=== PATIENT | female | born 1940 | race Asian ===

== ENCOUNTER 2016-05-06 15:57 | Emergency (ER) | payer OTHER ==
[~2016-05-06] VITALS: Ht 167.6 cm; Wt 73.9 kg
[2016-05-06 17:45] LABS: PLATELET COUNT 205 K/uL (152-353)
[2016-05-06 17:55] LABS: POTASSIUM 4.2 mmol/L (3.6-5.2)
[2016-05-06 18:40] VITALS: BP 126/90; TEMP 98.5
== END 2016-05-06 18:43 | disposition home or self-care (01) ==
LOC: ED 15:57
DX: I10 Essential (primary) hypertension (principal); E11.9 Type 2 diabetes mellitus without complications; F41.8 Other specified anxiety disorders
CPT/HCPCS: 80053; 85027; 93005; 99283

== ENCOUNTER 2016-07-11 14:47 | Outpatient (CLI) | payer OTHER ==
[2016-07-11 15:41] LABS: PLATELET COUNT 293 K/uL (152-353)
== END 2016-07-11 16:00 | disposition home or self-care (01) ==
LOC: LAB 14:47
PROVIDERS: Internal Medicine
DX: I63.8 Other cerebral infarction (principal); I63.512 Cerebral infarction due to unspecified occlusion or stenosis of left middle cerebral artery; I69.959 Hemiplegia and hemiparesis following unspecified cerebrovascular disease affecting unspecified side; D50.8 Other iron deficiency anemias
CPT/HCPCS: 82607; 82728; 82746; 83540; 85027

== ENCOUNTER 2016-07-20 11:10 | Outpatient (CLI) | payer OTHER ==
[~2016-07-20] VITALS: Ht 160 cm; Wt 67.1 kg
[2016-07-20 11:48] VITALS: BP 143/62; TEMP 98.6
== END 2016-07-20 13:02 | disposition home or self-care (01) ==
LOC: INF 11:10
DX: D50.8 Other iron deficiency anemias (principal)
CPT/HCPCS: 96365; J1756

== ENCOUNTER 2016-08-10 13:58 | Inpatient (IN) | payer OTHER | END 2016-09-02 15:26 | disposition still patient (30) | LOC: PAVB 13:58 | PROVIDERS: ADMIT Internal Medicine | DX: Z51.89 Encounter for other specified aftercare (principal) ==

== ENCOUNTER 2016-08-10 18:42 | Outpatient (CLI) | payer OTHER | END 2016-08-10 19:45 | disposition home or self-care (01) | LOC: LAB 18:42 | DX: Z13.89 Encounter for screening for other disorder (principal) | CPT/HCPCS: 87081 ==

== ENCOUNTER 2016-08-11 09:21 | Outpatient (CLI) | payer OTHER ==
[2016-08-11 09:34] LABS: PLATELET COUNT 283 K/uL (152-353)
[2016-08-11 10:24] LABS: SODIUM 142 mmol/L (136-145)
== END 2016-08-11 19:27 | disposition home or self-care (01) ==
LOC: LAB 09:21
PROVIDERS: Internal Medicine
DX: E11.9 Type 2 diabetes mellitus without complications (principal); E55.9 Vitamin D deficiency, unspecified; I10 Essential (primary) hypertension; E78.4 Other hyperlipidemia; D64.89 Other specified anemias
CPT/HCPCS: 80053; 80061; 82248; 82306; 82728; 83036; 83540; 85027

== ENCOUNTER 2016-09-02 16:02 | Inpatient (IN) | payer OTHER | END 2016-10-03 09:48 | disposition still patient (30) | LOC: PAVB 16:02 | PROVIDERS: ADMIT Internal Medicine | DX: Z51.89 Encounter for other specified aftercare (principal) ==

== ENCOUNTER 2016-10-03 11:26 | Inpatient (IN) | payer OTHER | END 2016-11-03 08:46 | disposition still patient (30) | LOC: PAVB 11:26 | PROVIDERS: ADMIT Internal Medicine | DX: Z51.89 Encounter for other specified aftercare (principal) ==

== ENCOUNTER 2016-11-03 09:36 | Inpatient (IN) | payer OTHER | END 2016-12-03 10:10 | disposition still patient (30) | LOC: PAVB 09:36 | PROVIDERS: ADMIT Internal Medicine | DX: Z51.89 Encounter for other specified aftercare (principal) ==

== ENCOUNTER 2016-11-08 08:07 | Outpatient (CLI) | payer OTHER | END 2016-11-08 09:10 | disposition home or self-care (01) | LOC: LAB 08:07 | DX: E11.9 Type 2 diabetes mellitus without complications (principal) | CPT/HCPCS: 83036 ==

== ENCOUNTER 2016-12-03 10:23 | Inpatient (IN) | payer OTHER | END 2017-01-03 13:04 | disposition still patient (30) | LOC: PAVB 10:23 | PROVIDERS: ADMIT Internal Medicine ==

== ENCOUNTER 2017-01-03 14:13 | Inpatient (IN) | payer OTHER | END 2017-02-02 09:25 | disposition still patient (30) | LOC: PAVB 14:13 | PROVIDERS: ADMIT Internal Medicine ==

== ENCOUNTER 2017-02-02 10:04 | Inpatient (IN) | payer OTHER | END 2017-03-05 09:44 | disposition still patient (30) | LOC: PAVB 10:04 | PROVIDERS: ADMIT Internal Medicine ==

== ENCOUNTER 2017-02-05 06:05 | Outpatient (CLI) | payer OTHER ==
[2017-02-05 06:43] LABS: PLATELET COUNT 177 K/uL (152-353)
[2017-02-05 06:58] LABS: POTASSIUM 3.8 mmol/L (3.6-5.2); SODIUM 138 mmol/L (136-145)
== END 2017-02-05 07:05 | disposition home or self-care (01) ==
LOC: LAB 06:05
PROVIDERS: Internal Medicine
DX: D50.8 Other iron deficiency anemias (principal); I10 Essential (primary) hypertension; E78.4 Other hyperlipidemia
CPT/HCPCS: 36415; 80053; 80061; 82248; 82306; 82728; 83540; 85027

== ENCOUNTER 2017-02-12 06:32 | Day surgery (SDC) | payer OTHER | END 2017-02-12 09:17 | LOC: OR 06:32 | PROC: 08RJ3JZ Replacement of Right Lens with Synthetic Substitute, Percutaneous Approach (ICD-10-PCS; principal; 2017-02-12) | DX: H25.811 Combined forms of age-related cataract, right eye (principal) | CPT/HCPCS: 66984; J0171; V2632 ==

== ENCOUNTER 2017-02-14 05:01 | Outpatient (CLI) | payer OTHER | END 2017-02-14 06:05 | disposition home or self-care (01) | LOC: LAB 05:01 | DX: E11.9 Type 2 diabetes mellitus without complications (principal); D64.89 Other specified anemias | CPT/HCPCS: 83036 ==

== ENCOUNTER 2017-03-05 10:51 | Inpatient (IN) | payer OTHER | END 2017-04-05 09:59 | disposition still patient (30) | LOC: PAVB 10:51 | PROVIDERS: ADMIT Internal Medicine ==

== ENCOUNTER 2017-03-18 14:03 | Outpatient (CLI) | payer OTHER | END 2017-03-18 23:03 | disposition home or self-care (01) | LOC: LAB 14:03 | DX: R50.9 Fever, unspecified (principal) | CPT/HCPCS: 87804 ==

== ENCOUNTER 2017-03-19 01:32 | Outpatient (CLI) | payer OTHER ==
[2017-03-19 02:27] LABS: PLATELET COUNT 191 K/uL (152-353)
== END 2017-03-19 21:43 | disposition home or self-care (01) ==
LOC: RAD 01:32 → LAB 01:32
PROVIDERS: Internal Medicine
DX: R09.3 Abnormal sputum (principal); R50.9 Fever, unspecified; I51.7 Cardiomegaly
CPT/HCPCS: 36415; 85027; 87040; 87077; 87186; 87205

== ENCOUNTER 2017-04-05 11:06 | Inpatient (IN) | payer OTHER | END 2017-05-03 09:23 | disposition still patient (30) | LOC: PAVB 11:06 | PROVIDERS: ADMIT Internal Medicine ==

== ENCOUNTER 2017-05-03 10:29 | Inpatient (IN) | payer OTHER | END 2017-06-03 08:00 | disposition still patient (30) | LOC: PAVB 10:29 | PROVIDERS: ADMIT Internal Medicine ==

== ENCOUNTER 2017-05-07 04:42 | Outpatient (CLI) | payer OTHER | END 2017-05-07 19:16 | disposition home or self-care (01) | LOC: LABW 04:42 | DX: E11.9 Type 2 diabetes mellitus without complications (principal) | CPT/HCPCS: 36415; 83036 ==

== ENCOUNTER 2017-06-03 09:00 | Inpatient (IN) | payer OTHER | END 2017-07-03 09:09 | disposition still patient (30) | LOC: PAVB 09:00 | PROVIDERS: ADMIT Internal Medicine ==

== ENCOUNTER 2017-07-03 10:12 | Inpatient (IN) | payer OTHER | END 2017-08-03 08:57 | disposition still patient (30) | LOC: PAVB 10:12 | PROVIDERS: ADMIT Internal Medicine ==

== ENCOUNTER 2017-07-14 23:14 | Outpatient (CLI) | payer OTHER | END 2017-07-14 23:55 | LOC: LAB 23:14 | DX: R73.9 Hyperglycemia, unspecified (principal) | CPT/HCPCS: 82947 ==

== ENCOUNTER 2017-08-03 10:10 | Inpatient (IN) | payer OTHER | END 2017-09-02 15:02 | disposition still patient (30) | LOC: PAVB 10:10 | PROVIDERS: ADMIT Internal Medicine ==

== ENCOUNTER 2017-08-07 08:13 | Outpatient (CLI) | payer OTHER ==
[2017-08-07 08:35] LABS: PLATELET COUNT 203 K/uL (152-353)
[2017-08-07 09:06] LABS: POTASSIUM 3.7 mmol/L (3.6-5.2)
== END 2017-08-07 22:18 | disposition home or self-care (01) ==
LOC: LAB 08:13
PROVIDERS: Internal Medicine
DX: I10 Essential (primary) hypertension (principal); D50.8 Other iron deficiency anemias; E78.4 Other hyperlipidemia; E11.9 Type 2 diabetes mellitus without complications; E55.9 Vitamin D deficiency, unspecified; Z79.899 Other long term (current) drug therapy; Z51.81 Encounter for therapeutic drug level monitoring
CPT/HCPCS: 80053; 80061; 82248; 82306; 82728; 83036; 83540; 85027

== ENCOUNTER 2017-09-02 15:55 | Inpatient (IN) | payer OTHER | END 2017-10-03 08:00 | disposition still patient (30) | LOC: PAVB 15:55 | PROVIDERS: ADMIT Internal Medicine ==

== ENCOUNTER 2017-10-03 09:00 | Inpatient (IN) | payer OTHER | END 2017-11-03 10:19 | disposition still patient (30) | LOC: PAVB 09:00 | PROVIDERS: ADMIT Internal Medicine ==

== ENCOUNTER 2017-11-03 11:02 | Inpatient (IN) | payer OTHER | END 2017-12-03 09:34 | disposition still patient (30) | LOC: PAVB 11:02 | PROVIDERS: ADMIT Internal Medicine ==

== ENCOUNTER 2017-11-08 04:29 | Outpatient (CLI) | payer OTHER | END 2017-11-08 23:15 | disposition home or self-care (01) | LOC: LAB 04:29 | DX: E11.9 Type 2 diabetes mellitus without complications (principal) | CPT/HCPCS: 36415; 83036 ==

== ENCOUNTER 2017-12-03 10:17 | Inpatient (IN) | payer OTHER | END 2018-01-03 08:48 | disposition still patient (30) | LOC: PAVB 10:17 | PROVIDERS: ADMIT Internal Medicine ==

== ENCOUNTER 2017-12-25 16:31 | Outpatient (CLI) | payer OTHER | END 2017-12-25 21:28 | disposition home or self-care (01) | LOC: CT 16:31 | DX: S00.83XA Contusion of other part of head, initial encounter (principal); W19.XXXA Unspecified fall, initial encounter; Y93.89 Activity, other specified; Y92.128 Other place in nursing home as the place of occurrence of the external cause; Z79.01 Long term (current) use of anticoagulants; R51 Headache ==

== ENCOUNTER 2018-01-03 09:55 | Inpatient (IN) | payer OTHER | END 2018-02-02 08:33 | disposition still patient (30) | LOC: PAVB 09:55 | PROVIDERS: ADMIT Internal Medicine ==

== ENCOUNTER 2018-02-02 09:17 | Inpatient (IN) | payer OTHER | END 2018-03-05 11:06 | disposition still patient (30) | LOC: PAVB 09:17 | PROVIDERS: ADMIT Internal Medicine ==

== ENCOUNTER 2018-02-04 06:06 | Outpatient (CLI) | payer OTHER ==
[2018-02-04 06:24] LABS: PLATELET COUNT 206 K/uL (152-353)
[2018-02-04 06:56] LABS: POTASSIUM 4.2 mmol/L (3.6-5.2)
== END 2018-02-04 20:25 | disposition home or self-care (01) ==
LOC: LAB 06:06
PROVIDERS: Internal Medicine
DX: I10 Essential (primary) hypertension (principal); E11.9 Type 2 diabetes mellitus without complications
CPT/HCPCS: 80053; 82248; 82306; 82728; 83036; 83540; 85027

== ENCOUNTER 2018-03-05 11:26 | Inpatient (IN) | payer OTHER | END 2018-04-05 10:55 | disposition still patient (30) | LOC: PAVB 11:26 | PROVIDERS: ADMIT Internal Medicine ==

== ENCOUNTER 2018-03-06 05:12 | Outpatient (CLI) | payer OTHER | END 2018-03-06 21:28 | disposition home or self-care (01) | LOC: LAB 05:12 | PROVIDERS: Internal Medicine | DX: E78.5 Hyperlipidemia, unspecified (principal) | CPT/HCPCS: 80061 ==

== ENCOUNTER 2018-04-05 11:16 | Inpatient (IN) | payer OTHER | END 2018-05-03 10:19 | disposition still patient (30) | LOC: PAVB 11:16 | PROVIDERS: ADMIT Internal Medicine ==

== ENCOUNTER 2018-04-30 04:17 | Outpatient (CLI) | payer OTHER ==
[2018-04-30 05:04] LABS: PLATELET COUNT 192 K/uL (152-353)
[2018-04-30 05:15] LABS: POTASSIUM 3.7 mmol/L (3.6-5.2)
== END 2018-04-30 19:18 | disposition home or self-care (01) ==
LOC: LAB 04:17
PROVIDERS: Internal Medicine
DX: N39.0 Urinary tract infection, site not specified (principal); R53.83 Other fatigue
CPT/HCPCS: 80048; 81000; 85027

== ENCOUNTER 2018-05-03 11:13 | Inpatient (IN) | payer OTHER | END 2018-06-03 10:40 | disposition still patient (30) | LOC: PAVB 11:13 | PROVIDERS: ADMIT Internal Medicine ==

== ENCOUNTER 2018-05-07 07:44 | Outpatient (CLI) | payer OTHER | END 2018-05-07 23:47 | disposition home or self-care (01) | LOC: LAB 07:44 | DX: E11.9 Type 2 diabetes mellitus without complications (principal) | CPT/HCPCS: 83036 ==

== ENCOUNTER 2018-06-03 11:21 | Inpatient (IN) | payer OTHER | END 2018-07-03 11:17 | disposition still patient (30) | LOC: PAVB 11:21 | PROVIDERS: ADMIT Internal Medicine ==

== ENCOUNTER 2018-07-03 12:25 | Inpatient (IN) | payer OTHER | END 2018-08-03 08:38 | disposition still patient (30) | LOC: PAVB 12:25 | PROVIDERS: ADMIT Internal Medicine | DX: Z51.89 Encounter for other specified aftercare (principal) ==

== ENCOUNTER 2018-08-03 09:30 | Inpatient (IN) | payer OTHER | END 2018-09-02 09:37 | disposition still patient (30) | LOC: PAVB 09:30 | PROVIDERS: ADMIT Internal Medicine ==

== ENCOUNTER 2018-08-07 05:00 | Outpatient (CLI) | payer OTHER ==
[2018-08-07 06:24] LABS: PLATELET COUNT 230 K/uL (152-353)
[2018-08-07 06:30] LABS: POTASSIUM 3.5 mmol/L (3.6-5.2)
== END 2018-08-07 23:22 | disposition home or self-care (01) ==
LOC: LAB 05:00
PROVIDERS: Internal Medicine
DX: E55.9 Vitamin D deficiency, unspecified (principal); E78.49 Other hyperlipidemia; I10 Essential (primary) hypertension; E11.21 Type 2 diabetes mellitus with diabetic nephropathy
CPT/HCPCS: 80053; 82248; 82306; 82728; 83036; 83540; 85027

== ENCOUNTER 2018-09-02 11:27 | Inpatient (IN) | payer OTHER | END 2018-10-03 10:35 | disposition still patient (30) | LOC: PAVB 11:27 | PROVIDERS: ADMIT Internal Medicine ==

== ENCOUNTER 2018-10-03 11:18 | Inpatient (IN) | payer OTHER | END 2018-11-03 16:26 | disposition still patient (30) | LOC: PAVB 11:18 | PROVIDERS: ADMIT Internal Medicine ==

== ENCOUNTER 2018-10-26 16:12 | Outpatient (CLI) | payer OTHER | END 2018-10-26 23:59 | disposition home or self-care (01) | LOC: LAB 16:12 | DX: R30.0 Dysuria (principal); R82.998 Other abnormal findings in urine | CPT/HCPCS: 81000 ==

== ENCOUNTER 2018-11-03 17:08 | Inpatient (IN) | payer OTHER | END 2018-12-03 09:21 | disposition still patient (30) | LOC: PAVB 17:08 | PROVIDERS: ADMIT Internal Medicine ==

== ENCOUNTER 2018-11-05 07:22 | Outpatient (CLI) | payer OTHER | END 2018-11-05 22:48 | disposition home or self-care (01) | LOC: LAB 07:22 | DX: E11.9 Type 2 diabetes mellitus without complications (principal) | CPT/HCPCS: 36415; 83036 ==

== ENCOUNTER 2018-12-03 10:32 | Inpatient (IN) | payer OTHER | END 2019-01-03 11:10 | disposition still patient (30) | LOC: PAVB 10:32 | PROVIDERS: ADMIT Internal Medicine ==

== ENCOUNTER 2019-01-03 11:37 | Inpatient (IN) | payer OTHER | END 2019-02-02 08:00 | disposition still patient (30) | LOC: PAVB 11:37 | PROVIDERS: ADMIT Internal Medicine ==

== ENCOUNTER 2019-02-02 10:10 | Inpatient (IN) | payer OTHER | END 2019-03-05 08:34 | disposition still patient (30) | LOC: PAVB 10:10 | PROVIDERS: ADMIT Internal Medicine ==

== ENCOUNTER 2019-02-05 06:43 | Outpatient (CLI) | payer OTHER ==
[2019-02-05 07:53] LABS: PLATELET COUNT 213 K/uL (152-353)
[2019-02-05 08:17] LABS: POTASSIUM 3.9 mmol/L (3.6-5.2)
== END 2019-02-05 20:40 | disposition home or self-care (01) ==
LOC: LAB 06:43
PROVIDERS: Internal Medicine
DX: E11.40 Type 2 diabetes mellitus with diabetic neuropathy, unspecified (principal); I10 Essential (primary) hypertension; E55.9 Vitamin D deficiency, unspecified; D50.8 Other iron deficiency anemias; E78.49 Other hyperlipidemia
CPT/HCPCS: 36415; 80053; 82248; 82306; 82728; 83036; 83540; 85027

== ENCOUNTER → 2019-02-26 | Outpatient (CLI) | payer OTHER | LOC: LAB 06:11 | DX: E11.9 Type 2 diabetes mellitus without complications (principal) | CPT/HCPCS: 82947 ==

== ENCOUNTER 2019-03-05 08:53 | Inpatient (IN) | payer OTHER | END 2019-04-05 09:56 | disposition still patient (30) | LOC: PAVB 08:53 | PROVIDERS: ADMIT Internal Medicine ==

== ENCOUNTER 2019-03-07 06:01 | Outpatient (CLI) | payer OTHER | END 2019-03-07 19:24 | disposition home or self-care (01) | LOC: LAB 06:01 | PROVIDERS: Internal Medicine | DX: E78.49 Other hyperlipidemia (principal) | CPT/HCPCS: 80061 ==

== ENCOUNTER 2019-03-20 10:11 | Day surgery (SDC) | payer OTHER | END 2019-03-20 11:32 | LOC: OR 10:11 | PROC: 0HQ3XZZ Repair Left Ear Skin, External Approach (ICD-10-PCS; principal; 2019-03-20) | DX: S01.312A Laceration without foreign body of left ear, initial encounter (principal); X58.XXXA Exposure to other specified factors, initial encounter; Y92.128 Other place in nursing home as the place of occurrence of the external cause ==

== ENCOUNTER 2019-04-05 10:36 | Inpatient (IN) | payer OTHER | END 2019-05-04 13:15 | disposition still patient (30) | LOC: PAVB 10:36 | PROVIDERS: ADMIT Internal Medicine ==

== ENCOUNTER 2019-05-03 05:50 | Outpatient (CLI) | payer OTHER | END 2019-05-03 19:20 | disposition home or self-care (01) | LOC: LAB 05:50 | DX: E10.9 Type 1 diabetes mellitus without complications (principal) | CPT/HCPCS: 82947 ==

== ENCOUNTER 2019-05-04 14:01 | Inpatient (IN) | payer OTHER | END 2019-06-04 09:41 | disposition still patient (30) | LOC: PAVB 14:01 | PROVIDERS: ADMIT Internal Medicine ==

== ENCOUNTER 2019-05-07 06:48 | Outpatient (CLI) | payer OTHER | END 2019-05-07 19:27 | disposition home or self-care (01) | LOC: LAB 06:48 | DX: E55.9 Vitamin D deficiency, unspecified (principal) | CPT/HCPCS: 82306 ==

== ENCOUNTER 2019-05-08 04:33 | Outpatient (CLI) | payer OTHER | END 2019-05-08 21:28 | disposition home or self-care (01) | LOC: LAB 04:33 | DX: E11.9 Type 2 diabetes mellitus without complications (principal) | CPT/HCPCS: 83036 ==

== ENCOUNTER 2019-06-04 10:28 | Inpatient (IN) | payer OTHER | END 2019-06-28 19:00 | disposition home or self-care (01) | LOC: PAVB 10:28 | PROVIDERS: ADMIT Internal Medicine ==

== ENCOUNTER 2019-07-17 09:58 | Outpatient (CLI) | payer OTHER ==
[2019-07-17 10:25] LABS: PLATELET COUNT 306 K/uL (152-353)
[2019-07-17 10:34] LABS: POTASSIUM 3.5 mmol/L (3.6-5.2)
== END 2019-07-17 19:01 | disposition home or self-care (01) ==
LOC: LAB 09:58
PROVIDERS: Nurse Practitioner Family
DX: E11.9 Type 2 diabetes mellitus without complications (principal); E55.9 Vitamin D deficiency, unspecified; E78.2 Mixed hyperlipidemia; I10 Essential (primary) hypertension; I25.10 Atherosclerotic heart disease of native coronary artery without angina pectoris; Z79.899 Other long term (current) drug therapy; R53.81 Other malaise; E53.8 Deficiency of other specified B group vitamins; F03.90 Unspecified dementia, unspecified severity, without behavioral disturbance, psychotic disturbance, mood disturbance, and anxiety
CPT/HCPCS: 80053; 80061; 81000; 82043; 82306; 82570; 82607; 83036; 83735; 85027

== ENCOUNTER 2020-06-02 15:02 | Inpatient (IN) | payer OTHER | END 2020-06-03 13:58 | disposition still patient (30) | LOC: PAVC 15:02 | PROVIDERS: ADMIT Internal Medicine; ATTEND Internal Medicine ==

== ENCOUNTER 2020-06-03 11:51 | Outpatient (CLI) | payer OTHER ==
[2020-06-03 12:40] LABS: PLATELET COUNT 238 K/uL (152-353)
[2020-06-03 12:46] LABS: POTASSIUM 3.5 mmol/L (3.6-5.2)
== END 2020-06-03 21:33 | disposition home or self-care (01) ==
LOC: LAB 11:51
PROVIDERS: ATTEND Internal Medicine
DX: I69.353 Hemiplegia and hemiparesis following cerebral infarction affecting right non-dominant side (principal); E11.9 Type 2 diabetes mellitus without complications; E55.9 Vitamin D deficiency, unspecified; I10 Essential (primary) hypertension; D50.8 Other iron deficiency anemias; E53.8 Deficiency of other specified B group vitamins
CPT/HCPCS: 80053; 80061; 82306; 82607; 82728; 83036; 83540; 84443; 85027; 87081

== ENCOUNTER 2020-06-03 14:00 | Inpatient (IN) | payer OTHER | END 2020-07-03 10:53 | disposition still patient (30) | LOC: PAVC 14:00 → PAVB 06-22 14:43 | PROVIDERS: ADMIT Internal Medicine; ATTEND Internal Medicine ==

== ENCOUNTER 2020-07-03 10:55 | Inpatient (IN) | payer OTHER | END 2020-08-03 15:28 | disposition still patient (30) | LOC: PAVB 10:55 | PROVIDERS: ADMIT Internal Medicine; ATTEND Internal Medicine ==

== ENCOUNTER 2020-08-03 15:37 | Inpatient (IN) | payer OTHER | END 2020-09-02 08:00 | disposition still patient (30) | LOC: PAVB 15:37 | PROVIDERS: ADMIT Internal Medicine; ATTEND Internal Medicine ==

== ENCOUNTER 2020-09-02 09:00 | Inpatient (IN) | payer OTHER | END 2020-10-03 08:00 | disposition still patient (30) | LOC: PAVB 09:00 → PAVA 09-08 11:16 | PROVIDERS: ADMIT Internal Medicine; ATTEND Internal Medicine ==

== ENCOUNTER 2020-09-07 10:31 | Outpatient (CLI) | payer OTHER | END 2020-09-07 19:15 | disposition home or self-care (01) | LOC: LAB 10:31 | PROVIDERS: ATTEND Internal Medicine | DX: E11.9 Type 2 diabetes mellitus without complications (principal) | CPT/HCPCS: 83036 ==

== ENCOUNTER 2020-10-03 09:00 | Inpatient (IN) | payer OTHER | END 2020-11-03 09:07 | disposition still patient (30) | LOC: PAVA 09:00 | PROVIDERS: ADMIT Internal Medicine; ATTEND Internal Medicine ==

== ENCOUNTER 2020-11-03 09:16 | Inpatient (IN) | payer OTHER | END 2020-12-03 08:09 | disposition still patient (30) | LOC: PAVA 09:16 | PROVIDERS: ADMIT Internal Medicine; ATTEND Internal Medicine ==

== ENCOUNTER 2020-11-30 09:22 | Outpatient (CLI) | payer OTHER | END 2020-11-30 19:09 | disposition home or self-care (01) | LOC: US 09:22 | PROVIDERS: ATTEND Internal Medicine | DX: M79.605 Pain in left leg (principal) ==

== ENCOUNTER 2020-12-06 07:48 | Outpatient (CLI) | payer OTHER ==
[2020-12-06 08:18] LABS: PLATELET COUNT 180 K/uL (152-353)
[2020-12-06 08:43] LABS: POTASSIUM 4.6 mmol/L (3.6-5.2)
== END 2020-12-06 21:04 | disposition home or self-care (01) ==
LOC: LAB 07:48
PROVIDERS: ATTEND Internal Medicine
DX: E11.9 Type 2 diabetes mellitus without complications (principal); I10 Essential (primary) hypertension; E55.9 Vitamin D deficiency, unspecified; D50.8 Other iron deficiency anemias
CPT/HCPCS: 80053; 80061; 82306; 83036; 84443; 85027

== ENCOUNTER 2021-02-02 08:53 | Inpatient (IN) | payer OTHER | END 2021-03-05 07:55 | disposition still patient (30) | LOC: PAVA 08:53 | PROVIDERS: ADMIT Internal Medicine; ATTEND Internal Medicine ==

== ENCOUNTER 2021-03-05 08:02 | Inpatient (IN) | payer OTHER | END 2021-04-05 08:42 | disposition still patient (30) | LOC: PAVA 08:02 | PROVIDERS: ADMIT Internal Medicine; ATTEND Internal Medicine ==

== ENCOUNTER 2021-03-07 07:27 | Outpatient (CLI) | payer OTHER | END 2021-03-07 18:47 | disposition home or self-care (01) | LOC: LAB 07:27 | PROVIDERS: ATTEND Internal Medicine | DX: E11.9 Type 2 diabetes mellitus without complications (principal) | CPT/HCPCS: 83036 ==

== ENCOUNTER 2021-03-31 21:08 | Emergency (ER) | payer OTHER ==
[~2021-03-31] VITALS: Ht 160 cm; Wt 70.3 kg
[2021-03-31 23:23] VITALS: BP 180/86; TEMP 98.4
== END 2021-03-31 23:23 | disposition still patient (30) ==
LOC: ED 21:08
DX: G47.19 Other hypersomnia (principal)
CPT/HCPCS: 81000; 99283

== ENCOUNTER 2021-04-05 09:36 | Inpatient (IN) | payer OTHER | END 2021-05-03 08:52 | disposition still patient (30) | LOC: PAVA 09:36 | PROVIDERS: ADMIT Internal Medicine; ATTEND Internal Medicine ==

== ENCOUNTER 2021-05-03 10:34 | Inpatient (IN) | payer OTHER | END 2021-06-03 08:09 | disposition still patient (30) | LOC: PAVA 10:34 | PROVIDERS: ADMIT Internal Medicine; ATTEND Internal Medicine ==

== ENCOUNTER 2021-05-20 08:57 | Outpatient (CLI) | payer OTHER | END 2021-05-20 19:32 | disposition home or self-care (01) | LOC: CT 08:57 | PROVIDERS: ATTEND Internal Medicine | DX: I69.351 Hemiplegia and hemiparesis following cerebral infarction affecting right dominant side (principal); R55 Syncope and collapse ==

== ENCOUNTER 2021-06-03 08:24 | Inpatient (IN) | payer OTHER | END 2021-07-03 10:48 | disposition still patient (30) | LOC: PAVA 08:24 | PROVIDERS: ADMIT Internal Medicine; ATTEND Internal Medicine ==

== ENCOUNTER 2021-06-03 09:48 | Outpatient (CLI) | payer OTHER ==
[2021-06-03 10:18] LABS: PLATELET COUNT 171 K/uL (152-353)
[2021-06-03 10:48] LABS: POTASSIUM 4.3 mmol/L (3.6-5.2)
== END 2021-06-03 20:52 | disposition home or self-care (01) ==
LOC: LAB 09:48
PROVIDERS: ATTEND Internal Medicine
DX: E11.9 Type 2 diabetes mellitus without complications (principal); I10 Essential (primary) hypertension; E55.9 Vitamin D deficiency, unspecified
CPT/HCPCS: 80053; 80061; 82306; 83036; 84443; 85027

== ENCOUNTER 2021-07-03 03:27 | Inpatient (IN) | payer OTHER | END 2021-08-03 09:23 | disposition still patient (30) | LOC: PAVA 03:27 | PROVIDERS: ADMIT Internal Medicine; ATTEND Internal Medicine ==

== ENCOUNTER 2021-08-03 11:04 | Inpatient (IN) | payer OTHER | END 2021-09-02 09:20 | disposition still patient (30) | LOC: PAVA 11:04 → PAVC 08-05 15:55 | PROVIDERS: ADMIT Internal Medicine; ATTEND Internal Medicine ==

== ENCOUNTER 2021-09-02 06:05 | Outpatient (CLI) | payer OTHER | END 2021-09-02 21:13 | disposition home or self-care (01) | LOC: LAB 06:05 | PROVIDERS: ATTEND Internal Medicine | DX: I69.353 Hemiplegia and hemiparesis following cerebral infarction affecting right non-dominant side (principal); E11.9 Type 2 diabetes mellitus without complications | CPT/HCPCS: 83036 ==

== ENCOUNTER 2021-09-02 13:41 | Inpatient (IN) | payer OTHER | END 2021-10-03 09:25 | disposition still patient (30) | LOC: PAVC 13:41 | PROVIDERS: ADMIT Internal Medicine; ATTEND Internal Medicine ==

== ENCOUNTER 2021-10-05 22:22 | Outpatient (CLI) | payer OTHER ==
[2021-10-05 22:31] LABS: PLATELET COUNT 177 K/uL (152-353)
[2021-10-05 22:33] LABS: POTASSIUM 3.9 mmol/L (3.6-5.2)
== END 2021-10-05 22:32 | disposition home or self-care (01) ==
LOC: LAB 22:22
PROVIDERS: ATTEND Internal Medicine
DX: D50.8 Other iron deficiency anemias (principal); R50.9 Fever, unspecified
CPT/HCPCS: 80053; 81000; 85027; 87088

== ENCOUNTER 2021-10-06 12:12 | Outpatient (CLI) | payer OTHER | END 2021-10-06 20:56 | disposition home or self-care (01) | LOC: RAD 12:12 | PROVIDERS: ATTEND Internal Medicine | DX: R06.89 Other abnormalities of breathing (principal) ==

== ENCOUNTER 2021-10-07 12:47 | Outpatient (CLI) | payer OTHER ==
[2021-10-07 13:22] LABS: PLATELET COUNT 135 K/uL (152-353)
== END 2021-10-07 21:57 | disposition home or self-care (01) ==
LOC: LAB 12:47
PROVIDERS: ATTEND Family Medicine
DX: U07.1 COVID-19 (principal); R82.998 Other abnormal findings in urine
CPT/HCPCS: 81000; 85027; 87077; 87086; 87088; 87186

== ENCOUNTER 2021-10-08 11:28 | Emergency (ER) | payer OTHER ==
[~2021-10-08] VITALS: Ht 160 cm; Wt 70.3 kg
[2021-10-08 11:52] LABS: PLATELET COUNT 124 K/uL (152-353)
[2021-10-08 12:06] LABS: POTASSIUM 3.5 mmol/L (3.6-5.2)
[2021-10-08 13:55] VITALS: BP 132/62; TEMP 99
== END 2021-10-08 14:00 | disposition short-term general hospital (02) ==
LOC: ED 11:28
PROVIDERS: Emergency Medicine
DX: N17.8 Other acute kidney failure (principal); I21.4 Non-ST elevation (NSTEMI) myocardial infarction; D64.89 Other specified anemias; U07.1 COVID-19; N39.0 Urinary tract infection, site not specified; F03.90 Unspecified dementia, unspecified severity, without behavioral disturbance, psychotic disturbance, mood disturbance, and anxiety; I10 Essential (primary) hypertension
CPT/HCPCS: 80053; 82272; 83880; 84484; 85027; 93005; 96360; 99284